=== PATIENT | male | born 1945 | race Hispanic/Latino ===

== ENCOUNTER → 2017-05-02 | Day surgery (SDC) | payer BC ==
[~2017-05-02] MED LIST: Bupivacaine HCl 0.5% PF (10 ml) Inj ONE; HYDROmorphone 0.5 mg/0.5 ml ISec IVP PRN; Iohexol 240 (50 ml) ONE; Lactated Ringer's 1,000 ML IV ONE; Lidocaine 2% Inj (20ml) ONE; MethylPREDNISolone Depo 40 mg/ml Inj ONE; Midazolam 2 MG/2 ML VIAL ONE; Propofol 10 mg/ml Inj (20 ML) ONE; ceFAZolin IV 1 gm in Dextrose 1 GM/50 ML BAG IVPB ONE
[2017-05-02 08:54] VITALS: BMI 31.1
[2017-05-02 14:45] VITALS: BP 132/75; PULSE 84; RESP 15; TEMP 97.5; O2SAT 98
--- NOTE | 2017-05-02 16:05 | PCM.SURG1 ---
Surgeon's Initial Post Op Note - Surgeon's Notes Surgeon: Cathi Irizarry MD Sole Seamer: Deedee Yeager PA-C Type of Anesthesia: General Endo, IV Sedation, Local Pre-Operative Diagnosis: Right hip severe DJD Operative Findings: Right hip severe DJD Post-Operative Diagnosis: Right hip severe DJD Operation Performed: Right hip injection under flouroscopic guidance with lidocaine/marcaine/depo Specimen/Specimens Removed: specimen=none. complications= none. injection contents= 2cc lidocaine w/o epi preservative free, 2cc 0.5% Marcaine w/o epi preservative free, 1cc 80mg depo preservative free Estimated Blood Loss: EBL {In ML}: 0 Blood Products Given: N/A Drains Used: No Drains Post-Op Condition: Good Date of Surgery/Procedure: 05/02/17 Time of Surgery/Procedure: 12:00
--- NOTE | 2017-05-02 16:21 | RAD ---
PROCEDURE: Intraoperative Fluoroscopy. HISTORY: RT HIP JOINT DISEASE FINDINGS: Fluoroscopic assistance was provided. Approximately 19.4 seconds fluoroscopy time utilized during this procedure. Radiation dose = 3.37 mGy.
--- NOTE | 2017-05-03 03:38 | OP ---
PROCEDURE DATE: 05/02/2017 PREOPERATIVE DIAGNOSIS: Right hip severe degenerative joint disease. POSTOPERATIVE DIAGNOSIS: Right hip severe degenerative joint disease. PROCEDURE: Right hip injection under fluoroscopic guidance with lidocaine/Marcaine/Depo-Medrol. SURGEON: Cathi Irizarry MD SHANK INSPECTOR: Deedee Yeager PA-C JUSTIFICATION FOR SHANK INSPECTOR: Deedee Yeager is a certified physician power plant assistant and skilled surgical assistance, whose presence facilitated the procedure to be done efficiently. He provided skilled surgical assistance with positioning of the patient, positioning extremity, preparation of injection contents and administration of injection. Deedee Yeager is present throughout the entire case. ANESTHESIA: IV sedation and local anesthetic applied by surgeon. INJECTION CONTENTS: 1 mL of Depo-Medrol 80 mg preservative free, 2 mL of 2% lidocaine without epinephrine preservative free, 2 mL of 0.5% Marcaine without epinephrine preservative free. SPECIMEN: None. DRAINS: None. COMPLICATIONS: None. DISPOSITION: The patient was awaken from IV sedation, transferred to PACU in stable condition and tolerated the procedure well. INDICATIONS FOR THE PROCEDURE: The patient is a 71-year-old male with a past medical history significant for hypertension. He was been under my care since 08/09/2014 with right hip pain for almost 5 years as it became significantly worse over the past 2 years. He was diagnosed with severe right hip degenerative joint disease. He underwent under my care right hip injection and fluoroscopic guidance with lidocaine, Marcaine and Depo-Medrol on 2 occasions, once on 01/09/2015 and a second injection on 04/17/2015 both with very good results and near-complete resolution of pain lasting a few month. The patient has been indicated for the right hip total hip arthroplasty as his pain did return as well as his dysfunction. He has had some dental issues that has been under the care of his dentist as well as prostatic cancer, which has been treated successfully and he has a wedding coming up for his daughter and wished to be able to participate in the wedding with minimal pain and without the use of narcotic pain medication, which he requires on a constant basis due to his right hip pain. He was indicated for repeat injection as the timing was not right for him to undergo the total hip arthroplasty and the procedure was scheduled as a right hip injection on the fluoroscopic guidance under sedation. He was referred to his primary care physician for PACs and evaluation and procedure was scheduled. The risks,benefits, alternatives of the procedure were discussed at length with the patient with the risk including not limited to infection, neurovascular examination, need for further surgery, anesthesia reactions, allergic reactions, increased pain, development of chronic pain and disability, developed a blood clot including DVT and PE, anesthesia reactions including . After answering all of his questions, the patient stated that he understood the risks and wished to proceed with surgery. He was very familiar with the procedure and knew what to anticipate. PROCEDURE IN DETAIL: The patient was identified in the preoperative holding area and the right hip is marked for the procedure. Once again the risks, benefits and alternatives of the procedure were discussed at length with the patient as described above and an informed consent was obtained. After brief discussion with anesthesia staff, the perioperative IV antibiotics in the form of 2 g Ancef was administrated and the patient was taken to the operating room, placed on the well-padded operating room table that was radiolucent. The right hip was prepped and draped in standard sterile fashion. Both feet were taped together in internal rotation to allow maximal access to the anterior hip capsule of the right hip. An intersecting line was drawn from the palpated ASIS down the long axis of the leg. A line was drawn from the fluoroscopically visualized tip of the greater trochanter across the long axis of the leg intersecting with the previous line. As this intersection care was taken to stay in the upper outer quadrant to avoid injury to the neurovascular structures. Entrance point for this spinal needle was confirmed under fluoroscopic guidance to allow access to the superior femoral head neck junction. The entrance point for the spinal needle at the skin was identified. At final time out was done with surgeon, anesthesia staff, and OR staff, and all are in agreement with the patient. The procedure being done and extremity to be operated on. 10 mL of 2% lidocaine without epinephrine were injected and infiltrated locally at the injection point for the spinal needle to provide local anesthetic. Once the local anesthetic was in effect, the spinal needle was advanced through the skin, through the soft tissue down to the superior head neck junction and confirmed the fluoroscopic visualization to be in a good position. At that point in time, 2 mL of 1:1 mixture of 2% lidocaine without epinephrine preservative free and radiopaque contrast were injected to confirm an intraarticular position of the spinal needle. The visualized contrast lidocaine mixture was seen on fluoroscopic imaging to pool at the inferior aspect of the hip joint. An intraarticular position to the spinal needle was confirmed after seeing this contrast pool at the inferior aspect of the hip joint and attempt at reaspiration remaining or excess contrast of lidocaine was done and the treatment injection mixture was injected in its entirety consisting of the 5 mL mixture of 2 mL of 2% lidocaine without epinephrine preservative free, 2 mL of 0.5% Marcaine without epinephrine preservative free, 1 mL of 80 mg Depo-Medrol. Once the injection was placed in its entirety, the spinal needle was removed and sterile dressings were placed. The patient was then transferred to PACU in stable condition and tolerated the procedure well. On reexamination in PACU, the patient exhibited an increase in range of motion and stated that he had near complete resolution of his right hip and groin pain and read as his pain is 0 out of 10. He was also neurovascularly intact distally. DISPOSITION: The patient will be follow up in the office at [facility] within one week and he already has postoperative appointment setup. He was given a prescription of Vicoprofen for pain control as he may have a flare-up of pain tonight after the local anesthetic wears off. He was instructed the weightbearing as tolerated with no restrictions to the right lower extremity. He will contact me with any questions or concerns. He was instructed to keep the dressings at the injection site on clean, dry and intact for 24 hours. Cathi Irizarry MD
== END | disposition home or self-care (01) ==
LOC: C.SDS 08:42
PROVIDERS: ATTEND Student in an Organized Health Care Education/Training Program
DX: M16.11 Unilateral primary osteoarthritis, right hip (principal); I10 Essential (primary) hypertension
CPT/HCPCS: 20610; 76000; J0690; J2250; J2704; J7120